=== PATIENT | female | born 1980 | race Caucasian/White ===

== ENCOUNTER → 2019-01-21 | Outpatient (CLI) | payer OTHER ==
[~2019-01-21] MED LIST: GADOBENATE DIMEGLUMINE 1 ML IV ONE
--- NOTE | 2019-01-21 12:39 | Diagnostic Imaging Report ---
TECHNIQUE: Magnetic resonance imaging of the LEFT HAND was performed without and with injected contrast. HISTORY: Soft tissue mass COMPARISON: None. FINDINGS: In the ulnar sided soft tissues of the ring finger at the level of the proximal interphalangeal joint, a 1 x 1 x 0.7 cm soft tissue nodule. The lesion is hyperintense on fluid sensitive images, T1 isointense to muscle, and shows avid peripheral enhancement. Centrally has areas of hypointense signal which could reflect calcification. No radiographic to compare with. The mass abuts the cortex, however it does not appear to be associated with the flexor or extensor tendon. The flexor and extensor tendons are intact. The annular pulleys are intact. IMPRESSION: 1 cm avidly enhancing soft tissue nodule in the subcutaneous tissues ulnar side ring finger. Nonspecific imaging characteristics but could reflect juxtacortical/soft tissue chondroma among others. Signed by: Dr. Rufino Blackwell M.D. on 01/22/2019 3:36 PM
== END ==
LOC: MRI 10:36
PROVIDERS: ATTEND Plastic Surgery
DX: R22.32 Localized swelling, mass and lump, left upper limb (principal)

== ENCOUNTER → 2019-03-10 | Day surgery (SDC) | payer OTHER ==
[~2019-03-10] MED LIST changes: +BUPIVACAINE HCL 0.5% INJ 30 ML VIAL INJ ONE; +CEFAZOLIN SOD 1 GM/NS 50ML 50 ML IV ONE; +DEXAMETHASONE SOD PHOS INJ 4 MG/ML VIAL ONE; +DEXTROSE 10% 1,000 ML IV ONE; +FENTANYL CITRATE/PF 100MCG/2 ML INJ ONE; -GADOBENATE DIMEGLUMINE 1 ML IV ONE; +LIDOCAINE HCL 2% JELLY 5 ML TUBE ONE; +LIDOCAINE HCL 2% LOCAL INJ 5 ML SDV VIAL INJ ONE; +MIDAZOLAM HCL 2 MG/2 ML VIAL ONE; +MULTIVITAMINS1 EAC7 PO; +MUPIROCIN 2% OINT 22 GM TUBE ONE; +ONDANSETRON HCL INJ 2MG/ML 2ML 2 MG/ML VIAL ONE; +PROPOFOL IV EMULSION 10 MG/ML 20 ML VIAL ONE; +SEVOFLURANE INHAL SOLN 250 ML PEN BTL ONE
--- OUTSIDE RECORDS SUMMARY | 2019-03-10 07:09 | XMS REPORT ---
[facility] Address Unknown Phone Unavailable Care Team Providers Care Glass Beveller Name Role Phone ASHER AU Unavailable Unavailable Problems This patient has no known problems. Allergies, Adverse Reactions, Alerts This patient has no known allergies or adverse reactions. Medications This patient has no known medications. Results Test Description Test Time Test Comments Text Results Atomic Results Result Comments MRI HAND LEFT WOW 2019-01-21 12:27:00 [place] [address] Patient Name: ALEIDA PICKARD MR #: [id number] : 1980 Age/Sex: 38/F Req #: [id number] [facility] Physician: Ordered by: ASHER AU MD Report #: [id number] Location: MRI Room/Bed: Procedure: [id number] MRI/MRI HAND LEFT WOW Exam Date: Exam Time: REPORT STATUS: Signed TECHNIQUE: Magnetic resonance imaging of the LEFT HAND was performed without and with injected contrast. HISTORY: Soft tissue mass COMPARISON: None. FINDINGS: In the ulnar sided soft tissues of the ring finger at the level of the proximal interphalangeal joint, a 1 x 1 x 0.7 cm soft tissue nodule. The lesion is hyperintense on fluid sensitive images, T1 isointense to muscle, and shows avid peripheral enhancement. Centrally has areas of hypointense signal which could reflect calcification. No radiographic to compare with. The mass abuts the cortex, however it does not appear to be associated with the flexor or extensor tendon. The flexor and extensor tendons are intact. The annular pulleys are intact. IMPRESSION: 1 cm avidly enhancing soft tissue nodule in the subcutaneous tissues ulnar side ring finger. Nonspecific imaging characteristics but could reflect juxtacortical/soft tissue chondroma among others. Signed by: Dr. Jacqui Sinclair M.D. on 01/22/2019 3:36 PM Dictated By: JACQUI SINCLAIR MD [id number] Transcribed By: ZO on 01/22/19 1536 COPY TO: ASHER UA MD
[2019-03-10 11:30] VITALS: BP 113/79
--- NOTE | 2019-03-10 11:48 | Operative Report ---
DATE OF PROCEDURE: 03/10/2019 SURGEON: Jah Balderas MD PREOPERATIVE DIAGNOSIS: Vascular neoplasm, left ring finger, 2.5 cm. POSTOPERATIVE DIAGNOSIS: Vascular neoplasm, left ring finger, 2.5 cm. PROCEDURE: Excision of subfascial vascular neoplasm 2.5 cm in length. ANESTHESIA: General. 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 Risks, benefits, and alternatives of treatment were discussed with the patient and she is prepared to undergo the procedure as outlined. PROCEDURE IN DETAIL: The patient was marked preoperatively in the holding area. She was brought to the operating theater and after the induction of adequate general anesthesia, she was prepped and draped in a supine position and a time-out was performed. The left upper extremity was exsanguinated and the tourniquet inflated to a pressure of 250 mmHg. A midlateral incision was marked out from the proximal phalanx to the PIP joint and then from the PIP joint onto the middle phalanx. The incision was made through the skin and subcutaneous tissues. Venous tributaries were controlled with bipolar cautery. The mass was identified in the subfascial plane and was dissected all the way down to the neurovascular bundle on the ulnar side of the left ring finger by carefully identifying the communicating structures. These vascular structures were then coapted using the bipolar cautery and the vascular neoplasm was removed in its entirety. The wound was irrigated with bacteriostatic saline in order to ensure that adequate hemostasis achieved. The tourniquet was deflated and all bleeding points were attended to with the bipolar cautery. At this point, the wound was closed with 5-0 nylon in an interrupted horizontal mattress fashion. A Marcaine field block was performed at the base of the left ring finger. A sterile bulking conforming bandage was applied and the patient was returned to the recovery room in satisfactory condition and discharged with a postoperative instruction sheet as well as a followup appointment. Jah Balderas MD ER/MODL /[id number]
== END | disposition home or self-care (01) ==
LOC: OR 07:05
PROVIDERS: ATTEND Plastic Surgery
DX: D21.12 Benign neoplasm of connective and other soft tissue of left upper limb, including shoulder (principal)
CPT/HCPCS: 26113; 81025; 88305; J0690; J1100; J2001 ×2; J2250; J2405; J2704; J3010; 88304